=== PATIENT | male | born 1950 | race Caucasian/White ===

== ENCOUNTER → 2017-03-11 | Outpatient (REF) | payer MEDICARE, OTHER ==
[~2017-03-11] MED LIST: ACET65TA OR; ASPI325T OR; CIPRO OR; ENAL10TA2 OR; ENAL5TAB OR; FLAG500T OR; NIAS500T2 OR; NORV5TAB OR; TRAM50TA2 OR; [UNRECOGNIZED DRUG - OTHER] PO
[2017-03-11 12:16] LABS: BASO % 0.4 % (0.0-1.0); EOS # 0.1 K/mm3 (0.0-0.50); EOS % 1.6 % (0.0-3.0); LYMPH # 1.2 K/mm3 (1.5-4.5); LYMPH % 15.5 % (24.0-44.0); MEAN CORPUSCULAR HGB CONC 33.3 g/dl (32.0-36.5); MEAN CORPUSCULAR VOLUME 99.1 fl (80.0-96.0); MONO # 0.4 K/mm3 (0.0-0.8); NEUTROPHILS # 5.7 K/mm3 (1.8-7.7); NEUTROPHILS % 75.3 % (36.0-66.0); RED CELL DISTRIBUTION WIDTH 13.6 % (11.5-14.5); WHITE BLOOD COUNT 7.6 K/mm3 (4.0-10.0)
[2017-03-11 12:21] LABS: ALBUMIN 3.7 GM/DL (3.2-5.2); ALBUMIN/GLOBULIN RATIO 1.19 (1.00-1.93); BILIRUBIN,TOTAL 0.5 MG/DL (0.2-1.0); CALCIUM LEVEL 8.8 MG/DL (8.8-10.2); CREATININE FOR GFR 1.68 MG/DL (0.70-1.30); FREE T4 1.14 NG/DL (0.76-1.46); GLOMERULAR FILTRATION RATE 43.5 (>49); POTASSIUM SERUM 4.3 MEQ/L (3.5-5.1); TOTAL PROTEIN 6.8 GM/DL (6.4-8.2)
== END ==
LOC: M LABDRAW1 11:31
PROVIDERS: ATTEND Nurse Practitioner Adult Health
DX: E78.1 Pure hyperglyceridemia (principal); Z79.899 Other long term (current) drug therapy; E55.9 Vitamin D deficiency, unspecified; I42.0 Dilated cardiomyopathy; E11.59 Type 2 diabetes mellitus with other circulatory complications

== ENCOUNTER → 2017-06-26 | Outpatient (CLI) | payer MEDICARE, OTHER ==
[2017-06-26 10:11] LABS: BASO # 0.1 10^3/uL (0.0-0.2); BASO % 0.8 % (0.0-1.0); EOS # 0.2 10^3/uL (0.0-0.50); EOS % 2.7 % (0.0-3.0); IMMATURE GRANULOCYTE % 0.6 % (0-0); LYMPH # 1.8 10^3/uL (1.5-4.5); LYMPH % 19.3 % (24.0-44.0); MEAN CORPUSCULAR HEMOGLOBIN 32.2 pg (27.0-33.0); MEAN CORPUSCULAR HGB CONC 32.7 g/dl (32.0-36.5); MEAN CORPUSCULAR VOLUME 98.6 fl (80.0-96.0); MONO # 0.9 10^3/uL (0.0-0.8); MONO % 10.2 % (0.0-5.0); NEUTROPHILS % 66.4 % (36.0-66.0); PLATELET COUNT, AUTOMATED 146 10^3/uL (150-450); RED CELL DISTRIBUTION WIDTH 13.3 % (11.5-14.5); WHITE BLOOD COUNT 9.1 10^3/uL (4.0-10.0)
[2017-06-26 10:26] LABS: ALBUMIN 3.6 GM/DL (3.2-5.2); ALBUMIN/GLOBULIN RATIO 1.13 (1.00-1.93); BILIRUBIN,TOTAL 0.6 MG/DL (0.2-1.0); CREATININE FOR GFR 1.64 MG/DL (0.70-1.30); FREE T4 1.1 NG/DL (0.76-1.46); GLOMERULAR FILTRATION RATE 44.6 (>49); TOTAL PROTEIN 6.8 GM/DL (6.4-8.2)
== END ==
LOC: M LABDRAW1 08:04
PROVIDERS: ATTEND Nurse Practitioner Adult Health
DX: M10.071 Idiopathic gout, right ankle and foot (principal); E78.1 Pure hyperglyceridemia; E11.59 Type 2 diabetes mellitus with other circulatory complications; Z79.899 Other long term (current) drug therapy; E55.9 Vitamin D deficiency, unspecified

== ENCOUNTER → 2017-09-24 | Outpatient (REF) | payer MEDICARE, OTHER ==
[2017-09-24 12:36] LABS: CREATININE FOR GFR 1.51 MG/DL (0.70-1.30)
[2017-09-24 12:36] LABS: BLOOD UREA NITROGEN 28 MG/DL (7-18)
== END ==
LOC: M LABDRAW1 11:38
DX: I10 Essential (primary) hypertension (principal)
CPT/HCPCS: 82565

== ENCOUNTER → 2017-10-07 | Outpatient (REF) | payer MEDICARE, OTHER ==
[2017-10-07 11:56] LABS: BASO # 0.1 10^3/uL (0.0-0.2); BASO % 0.5 % (0.0-1.0); EOS # 0.3 10^3/uL (0.0-0.50); EOS % 2.7 % (0.0-3.0); IMMATURE GRANULOCYTE % 0.4 % (0-3.0); LYMPH # 1.8 10^3/uL (1.5-4.5); LYMPH % 19.5 % (24.0-44.0); MEAN CORPUSCULAR HEMOGLOBIN 32.1 pg (27.0-33.0); MEAN CORPUSCULAR HGB CONC 32.6 g/dl (32.0-36.5); MEAN CORPUSCULAR VOLUME 98.6 fl (80.0-96.0); MONO % 10.3 % (0.0-5.0); NEUTROPHILS # 6.3 10^3/uL (1.8-7.7); NEUTROPHILS % 66.6 % (36.0-66.0); PLATELET COUNT, AUTOMATED 145 10^3/uL (150-450); RED BLOOD COUNT 4.36 10^6/uL (4.30-6.10); WHITE BLOOD COUNT 9.4 10^3/uL (4.0-10.0)
[2017-10-07 12:30] LABS: TOTAL 25(OH) VITAMIN D 45.3 NG/ML (30.0-100.0)
[2017-10-07 12:35] LABS: ALBUMIN 3.6 GM/DL (3.2-5.2); ALBUMIN/GLOBULIN RATIO 1.13 (1.00-1.93); ALKALINE PHOSPHATASE 56 U/L (45-117); ALT/SGPT 25 U/L (12-78); ANION GAP 8 MEQ/L (8-16); AST/SGOT 17 U/L (7-37); BILIRUBIN,TOTAL 0.4 MG/DL (0.2-1.0); BLOOD UREA NITROGEN 27 MG/DL (7-18); CALCIUM LEVEL 9.1 MG/DL (8.8-10.2); CARBON DIOXIDE LEVEL 27 MEQ/L (21-32); CHLORIDE LEVEL 107 MEQ/L (98-107); CHOLESTEROL LEVEL 150 MG/DL (<200); CHOLESTEROL RISK RATIO 3.333 (<5); CREATININE FOR GFR 1.43 MG/DL (0.70-1.30); FREE T4 1.05 NG/DL (0.76-1.46); GLOMERULAR FILTRATION RATE 52.2 (>49); GLUCOSE, FASTING 146 MG/DL (70-100); HDL CHOLESTEROL 45 MG/DL (>40); LDL CHOLESTEROL 72.4 MG/DL (<100); NON-HDL-C 105 MG/DL; POTASSIUM SERUM 4.2 MEQ/L (3.5-5.1); SODIUM LEVEL 142 MEQ/L (136-145); THYROID STIMULATING HORMONE 0.864 uIU/ML (0.358-3.740); TOTAL PROTEIN 6.8 GM/DL (6.4-8.2); TRIGLYCERIDES LEVEL 163 MG/DL (<150)
[2017-10-07 12:37] LABS: ESTIMATED AVERAGE GLUCOSE 189 MG/DL (60-110); HEMOGLOBIN A1c 8.2 %
== END ==
LOC: M LABDRAW1 10:21
DX: E78.1 Pure hyperglyceridemia (principal); I42.0 Dilated cardiomyopathy; E11.59 Type 2 diabetes mellitus with other circulatory complications; I10 Essential (primary) hypertension; Z79.899 Other long term (current) drug therapy; E55.9 Vitamin D deficiency, unspecified; E78.00 Pure hypercholesterolemia, unspecified
CPT/HCPCS: 84443

== ENCOUNTER → 2018-01-06 | Outpatient (REF) | payer MEDICARE, OTHER ==
[2018-01-06 14:28] LABS: BASO # 0.1 10^3/uL (0.0-0.2); BASO % 0.6 % (0.0-1.0); EOS # 0.2 10^3/uL (0.0-0.50); EOS % 2.5 % (0.0-3.0); HEMATOCRIT 52.1 % (42.0-52.0); IMMATURE GRANULOCYTE % 0.5 % (0-3.0); LYMPH # 1.7 10^3/uL (1.5-4.5); LYMPH % 19.9 % (24.0-44.0); MEAN CORPUSCULAR HEMOGLOBIN 32.1 pg (27.0-33.0); MEAN CORPUSCULAR HGB CONC 32.6 g/dl (32.0-36.5); MEAN CORPUSCULAR VOLUME 98.5 fl (80.0-96.0); MONO # 0.9 10^3/uL (0.0-0.8); MONO % 10.6 % (0.0-5.0); NEUTROPHILS # 5.7 10^3/uL (1.8-7.7); NEUTROPHILS % 65.9 % (36.0-66.0); PLATELET COUNT, AUTOMATED 135 10^3/uL (150-450); RED BLOOD COUNT 5.29 10^6/uL (4.30-6.10); RED CELL DISTRIBUTION WIDTH 14.5 % (11.5-14.5); WHITE BLOOD COUNT 8.7 10^3/uL (4.0-10.0)
[2018-01-06 14:58] LABS: ESTIMATED AVERAGE GLUCOSE 192 MG/DL (60-110); HEMOGLOBIN A1c 8.3 %
[2018-01-06 14:59] LABS: TOTAL 25(OH) VITAMIN D 27.2 NG/ML (30.0-100.0)
[2018-01-06 15:12] LABS: ALBUMIN 3.8 GM/DL (3.2-5.2); ALBUMIN/GLOBULIN RATIO 1.23 (1.00-1.93); ALKALINE PHOSPHATASE 50 U/L (45-117); ALT/SGPT 33 U/L (12-78); ANION GAP 9 MEQ/L (8-16); AST/SGOT 24 U/L (7-37); BILIRUBIN,TOTAL 0.6 MG/DL (0.2-1.0); BLOOD UREA NITROGEN 28 MG/DL (7-18); CALCIUM LEVEL 9.1 MG/DL (8.8-10.2); CARBON DIOXIDE LEVEL 25 MEQ/L (21-32); CHLORIDE LEVEL 108 MEQ/L (98-107); CHOLESTEROL LEVEL 174 MG/DL (<200); CHOLESTEROL RISK RATIO 4.833 (<5); FREE T4 1.16 NG/DL (0.76-1.46); GLOMERULAR FILTRATION RATE 45.9 (>49); GLUCOSE, FASTING 180 MG/DL (70-100); HDL CHOLESTEROL 36 MG/DL (>40); LDL CHOLESTEROL 99.6 MG/DL (<100); NON-HDL-C 138 MG/DL; POTASSIUM SERUM 4.3 MEQ/L (3.5-5.1); SODIUM LEVEL 142 MEQ/L (136-145); TOTAL PROTEIN 6.9 GM/DL (6.4-8.2); TRIGLYCERIDES LEVEL 192 MG/DL (<150)
== END ==
LOC: M LABDRAW1 14:07
DX: E78.1 Pure hyperglyceridemia (principal); I42.0 Dilated cardiomyopathy; E11.59 Type 2 diabetes mellitus with other circulatory complications; I10 Essential (primary) hypertension; Z79.899 Other long term (current) drug therapy; E55.9 Vitamin D deficiency, unspecified; E78.00 Pure hypercholesterolemia, unspecified
CPT/HCPCS: 84443

== ENCOUNTER → 2018-03-19 | Outpatient (REF) | payer MEDICARE, OTHER ==
[2018-03-19 12:04] LABS: BASO # 0.1 10^3/uL (0.0-0.2); BASO % 0.9 % (0.0-1.0); EOS # 0.2 10^3/uL (0.0-0.50); EOS % 2.4 % (0.0-3.0); HEMATOCRIT 51.5 % (42.0-52.0); HEMOGLOBIN 16.6 g/dl (13.5-17.5); IMMATURE GRANULOCYTE % 0.4 % (0-3.0); LYMPH # 1.3 10^3/uL (1.5-4.5); LYMPH % 17.1 % (24.0-44.0); MEAN CORPUSCULAR HEMOGLOBIN 32.7 pg (27.0-33.0); MEAN CORPUSCULAR HGB CONC 32.2 g/dl (32.0-36.5); MEAN CORPUSCULAR VOLUME 101.6 fl (80.0-96.0); MONO # 0.7 10^3/uL (0.0-0.8); MONO % 9.4 % (0.0-5.0); NEUTROPHILS # 5.5 10^3/uL (1.8-7.7); NEUTROPHILS % 69.8 % (36.0-66.0); PLATELET COUNT, AUTOMATED 139 10^3/uL (150-450); RED BLOOD COUNT 5.07 10^6/uL (4.30-6.10); RED CELL DISTRIBUTION WIDTH 14.9 % (11.5-14.5); WHITE BLOOD COUNT 7.8 10^3/uL (4.0-10.0)
[2018-03-19 12:11] LABS: POSITIVE MORPH POS FLAG
[2018-03-19 12:18] LABS: TOTAL 25(OH) VITAMIN D 34.8 NG/ML (30.0-100.0)
[2018-03-19 12:41] LABS: ALBUMIN 3.7 GM/DL (3.2-5.2); ALBUMIN/GLOBULIN RATIO 1.12 (1.00-1.93); ALKALINE PHOSPHATASE 54 U/L (45-117); ALT/SGPT 25 U/L (12-78); ANION GAP 7 MEQ/L (8-16); AST/SGOT 9 U/L (7-37); BILIRUBIN,TOTAL 0.7 MG/DL (0.2-1.0); BLOOD UREA NITROGEN 26 MG/DL (7-18); CARBON DIOXIDE LEVEL 27 MEQ/L (21-32); CHLORIDE LEVEL 108 MEQ/L (98-107); CHOLESTEROL LEVEL 145 MG/DL (<200); CHOLESTEROL RISK RATIO 3.152 (<5); FREE T4 1.13 NG/DL (0.76-1.46); GLOMERULAR FILTRATION RATE 42.8 (>49); GLUCOSE, FASTING 186 MG/DL (70-100); HDL CHOLESTEROL 46 MG/DL (>40); LDL CHOLESTEROL 69.4 MG/DL (<100); NON-HDL-C 99 MG/DL; POTASSIUM SERUM 4.7 MEQ/L (3.5-5.1); SODIUM LEVEL 142 MEQ/L (136-145); THYROID STIMULATING HORMONE 0.866 uIU/ML (0.358-3.740); TRIGLYCERIDES LEVEL 148 MG/DL (<150); URIC ACID 5.9 MG/DL (3.5-7.2)
[2018-03-19 13:30] LABS: MAU/CREAT RATIO 293.2 MCG/MG (0.0-30.0)
[2018-03-19 13:49] LABS: ESTIMATED AVERAGE GLUCOSE 183 MG/DL (60-110)
== END ==
LOC: M LABDRAW1 09:05
DX: E11.9 Type 2 diabetes mellitus without complications (principal); E55.9 Vitamin D deficiency, unspecified; Z79.899 Other long term (current) drug therapy; E78.1 Pure hyperglyceridemia; M10.071 Idiopathic gout, right ankle and foot
CPT/HCPCS: 84443

== ENCOUNTER → 2018-04-15 | Outpatient (CLI) | payer MEDICARE, OTHER | LOC: M LRY 11:03 | DX: M77.31 Calcaneal spur, right foot (principal); M10.9 Gout, unspecified | CPT/HCPCS: G0463 ==

== ENCOUNTER → 2018-07-22 | Outpatient (REF) | payer MEDICARE, OTHER ==
[2018-07-22 12:40] LABS: BASO # 0.1 10^3/uL (0.0-0.2); BASO % 0.6 % (0.0-1.0); EOS # 0.3 10^3/uL (0.0-0.50); EOS % 2.4 % (0.0-3.0); HEMATOCRIT 51.6 % (42.0-52.0); HEMOGLOBIN 16.9 g/dl (13.5-17.5); LYMPH # 1.8 10^3/uL (1.5-4.5); LYMPH % 17.2 % (24.0-44.0); MEAN CORPUSCULAR HEMOGLOBIN 32.7 pg (27.0-33.0); MEAN CORPUSCULAR HGB CONC 32.8 g/dl (32.0-36.5); MEAN CORPUSCULAR VOLUME 99.8 fl (80.0-96.0); MONO # 1.1 10^3/uL (0.0-0.8); MONO % 10.2 % (0.0-5.0); NEUTROPHILS # 7.3 10^3/uL (1.8-7.7); PLATELET COUNT, AUTOMATED 138 10^3/uL (150-450); RED BLOOD COUNT 5.17 10^6/uL (4.30-6.10); WHITE BLOOD COUNT 10.6 10^3/uL (4.0-10.0)
[2018-07-22 12:53] LABS: ALBUMIN 3.5 GM/DL (3.2-5.2); BILIRUBIN,TOTAL 0.6 MG/DL (0.2-1.0); CALCIUM LEVEL 8.8 MG/DL (8.8-10.2); CHOLESTEROL RISK RATIO 3.825 (<5); CREATININE FOR GFR 1.68 MG/DL (0.70-1.30); GLOMERULAR FILTRATION RATE 43.2 (>42); THYROID STIMULATING HORMONE 0.438 uIU/ML (0.358-3.740); TOTAL PROTEIN 6.8 GM/DL (6.4-8.2)
[2018-07-22 13:22] LABS: HEMOGLOBIN A1c 8.8 %
== END ==
LOC: M LABDRAW1 11:34
PROVIDERS: ATTEND Nurse Practitioner Adult Health
DX: E78.2 Mixed hyperlipidemia (principal); E11.65 Type 2 diabetes mellitus with hyperglycemia; Z79.899 Other long term (current) drug therapy

== ENCOUNTER → 2018-08-25 | Outpatient (REF) | payer MEDICARE, OTHER ==
[2018-08-25 12:19] LABS: BASO # 0.1 10^3/uL (0.0-0.2); BASO % 0.6 % (0.0-1.0); EOS # 0.2 10^3/uL (0.0-0.50); EOS % 1.8 % (0.0-3.0); HEMATOCRIT 51.8 % (42.0-52.0); HEMOGLOBIN 16.8 g/dl (13.5-17.5); LYMPH # 1.5 10^3/uL (1.5-4.5); LYMPH % 18.3 % (24.0-44.0); MEAN CORPUSCULAR HEMOGLOBIN 32.4 pg (27.0-33.0); MEAN CORPUSCULAR HGB CONC 32.4 g/dl (32.0-36.5); MONO # 0.9 10^3/uL (0.0-0.8); MONO % 10.7 % (0.0-5.0); NEUTROPHILS # 5.7 10^3/uL (1.8-7.7); NEUTROPHILS % 68.2 % (36.0-66.0); PLATELET COUNT, AUTOMATED 135 10^3/uL (150-450); RED BLOOD COUNT 5.18 10^6/uL (4.30-6.10); WHITE BLOOD COUNT 8.3 10^3/uL (4.0-10.0)
[2018-08-25 12:28] LABS: ALBUMIN 3.5 GM/DL (3.2-5.2); BILIRUBIN,TOTAL 0.6 MG/DL (0.2-1.0); CALCIUM LEVEL 8.7 MG/DL (8.8-10.2); CHOLESTEROL RISK RATIO 3.476 (<5); CREATININE FOR GFR 1.59 MG/DL (0.70-1.30); GLOMERULAR FILTRATION RATE 46.1 (>42); POTASSIUM SERUM 4.2 MEQ/L (3.5-5.1); THYROID STIMULATING HORMONE 0.62 uIU/ML (0.358-3.740); TOTAL 25(OH) VITAMIN D 24.7 NG/ML (30.0-100.0); TOTAL PROTEIN 6.7 GM/DL (6.4-8.2)
[2018-08-25 12:39] LABS: HEMOGLOBIN A1c 9.2 %
== END ==
LOC: M LABDRAW1 11:41
PROVIDERS: ATTEND Nurse Practitioner Adult Health
DX: E78.2 Mixed hyperlipidemia (principal); E55.9 Vitamin D deficiency, unspecified; E11.65 Type 2 diabetes mellitus with hyperglycemia; Z79.899 Other long term (current) drug therapy

== ENCOUNTER → 2018-12-19 | Outpatient (REF) | payer MEDICARE, OTHER ==
[2018-12-19 12:47] LABS: BASO # 0.1 10^3/uL (0.0-0.2); BASO % 0.6 % (0.0-1.0); EOS # 0.2 10^3/uL (0.0-0.50); EOS % 1.5 % (0.0-3.0); LYMPH % 20.2 % (24.0-44.0); MEAN CORPUSCULAR HEMOGLOBIN 32.6 pg (27.0-33.0); MEAN CORPUSCULAR HGB CONC 32.7 g/dl (32.0-36.5); MEAN CORPUSCULAR VOLUME 99.8 fl (80.0-96.0); MONO % 10.2 % (0.0-5.0); NEUTROPHILS # 6.5 10^3/uL (1.8-7.7); PLATELET COUNT, AUTOMATED 130 10^3/uL (150-450); RED BLOOD COUNT 5.21 10^6/uL (4.30-6.10); WHITE BLOOD COUNT 9.8 10^3/uL (4.0-10.0)
[2018-12-19 13:15] LABS: ALBUMIN 3.6 GM/DL (3.2-5.2); BILIRUBIN,TOTAL 0.9 MG/DL (0.2-1.0); CALCIUM LEVEL 8.9 MG/DL (8.8-10.2); CHOLESTEROL RISK RATIO 3.8 (<5); CREATININE FOR GFR 1.67 MG/DL (0.70-1.30); GLOMERULAR FILTRATION RATE 43.5 (>42); POTASSIUM SERUM 4.4 MEQ/L (3.5-5.1); THYROID STIMULATING HORMONE 1.49 uIU/ML (0.358-3.740); TOTAL 25(OH) VITAMIN D 19.7 NG/ML (30.0-100.0); TOTAL PROTEIN 7.1 GM/DL (6.4-8.2)
== END ==
LOC: M LABDRAW1 11:58
PROVIDERS: ATTEND Nurse Practitioner Adult Health
DX: E78.2 Mixed hyperlipidemia (principal); E11.65 Type 2 diabetes mellitus with hyperglycemia; E55.9 Vitamin D deficiency, unspecified; Z79.899 Other long term (current) drug therapy

== ENCOUNTER → 2019-03-09 | Outpatient (REF) | payer MEDICARE, OTHER ==
[2019-03-09 13:23] LABS: BASO # 0.1 10^3/uL (0.0-0.2); BASO % 0.6 % (0.0-1.0); EOS # 0.2 10^3/uL (0.0-0.50); EOS % 2.1 % (0.0-3.0); HEMATOCRIT 48.2 % (42.0-52.0); HEMOGLOBIN 15.2 g/dl (13.5-17.5); LYMPH # 1.3 10^3/uL (1.5-4.5); LYMPH % 15.3 % (24.0-44.0); MEAN CORPUSCULAR HEMOGLOBIN 32.3 pg (27.0-33.0); MEAN CORPUSCULAR HGB CONC 31.5 g/dl (32.0-36.5); MEAN CORPUSCULAR VOLUME 102.3 fl (80.0-96.0); MONO # 0.9 10^3/uL (0.0-0.8); MONO % 10.4 % (0.0-5.0); NEUTROPHILS # 5.8 10^3/uL (1.8-7.7); NEUTROPHILS % 71.1 % (36.0-66.0); PLATELET COUNT, AUTOMATED 148 10^3/uL (150-450); RED BLOOD COUNT 4.71 10^6/uL (4.30-6.10); WHITE BLOOD COUNT 8.2 10^3/uL (4.0-10.0)
[2019-03-09 13:36] LABS: ALBUMIN 3.3 GM/DL (3.2-5.2); BILIRUBIN,TOTAL 0.4 MG/DL (0.2-1.0); CHOLESTEROL RISK RATIO 3.725 (<5); CREATININE FOR GFR 1.74 MG/DL (0.70-1.30); GLOMERULAR FILTRATION RATE 41.5 (>42); POTASSIUM SERUM 4.5 MEQ/L (3.5-5.1); THYROID STIMULATING HORMONE 1.59 uIU/ML (0.358-3.740); TOTAL 25(OH) VITAMIN D 22.8 NG/ML (30.0-100.0); TOTAL PROTEIN 6.8 GM/DL (6.4-8.2); URIC ACID 6.2 MG/DL (3.5-7.2)
[2019-03-09 14:04] LABS: HEMOGLOBIN A1c 12.9 %
== END ==
LOC: M LABDRAW1 12:13
PROVIDERS: ATTEND Nurse Practitioner Adult Health
DX: E78.2 Mixed hyperlipidemia (principal); E11.65 Type 2 diabetes mellitus with hyperglycemia; Z79.899 Other long term (current) drug therapy; M10.40 Other secondary gout, unspecified site; Z00.01 Encounter for general adult medical examination with abnormal findings; I10 Essential (primary) hypertension; E55.9 Vitamin D deficiency, unspecified

== ENCOUNTER → 2019-06-15 | Outpatient (REF) | payer MEDICARE, OTHER ==
[2019-06-15 12:15] LABS: BASO # 0.1 10^3/uL (0.0-0.2); BASO % 0.7 % (0.0-1.0); EOS # 0.2 10^3/uL (0.0-0.5); EOS % 1.5 % (0.0-3.0); HEMATOCRIT 50.4 % (42.0-52.0); LYMPH # 1.4 10^3/uL (1.5-5.0); LYMPH % 14.2 % (24.0-44.0); MEAN CORPUSCULAR HEMOGLOBIN 32.3 pg (27.0-33.0); MEAN CORPUSCULAR HGB CONC 31.7 g/dl (32.0-36.5); MEAN CORPUSCULAR VOLUME 101.8 fl (80.0-96.0); MONO # 0.8 10^3/uL (0.0-0.8); MONO % 7.9 % (0.0-5.0); NEUTROPHILS # 7.4 10^3/uL (1.5-8.5); NEUTROPHILS % 75.3 % (36.0-66.0); PLATELET COUNT, AUTOMATED 135 10^3/uL (150-450); RED BLOOD COUNT 4.95 10^6/uL (4.30-6.10); WHITE BLOOD COUNT 9.8 10^3/uL (4.0-10.0)
[2019-06-15 12:26] LABS: ALBUMIN 3.5 GM/DL (3.2-5.2); BILIRUBIN,TOTAL 0.7 MG/DL (0.2-1.0); CALCIUM LEVEL 9.4 MG/DL (8.8-10.2); CHOLESTEROL RISK RATIO 3.222 (<5); CREATININE FOR GFR 1.51 MG/DL (0.70-1.30); GLOMERULAR FILTRATION RATE 48.7 (>42); POTASSIUM SERUM 4.5 MEQ/L (3.5-5.1); THYROID STIMULATING HORMONE 1.08 uIU/ML (0.358-3.740); TOTAL 25(OH) VITAMIN D 59.4 NG/ML (30.0-100.0); TOTAL PROTEIN 6.7 GM/DL (6.4-8.2); URIC ACID 4.9 MG/DL (3.5-7.2)
== END ==
LOC: M LABDRAW1 08:58
PROVIDERS: ATTEND Nurse Practitioner Adult Health
DX: Z00.01 Encounter for general adult medical examination with abnormal findings (principal); E78.2 Mixed hyperlipidemia; E11.65 Type 2 diabetes mellitus with hyperglycemia; Z79.899 Other long term (current) drug therapy; E55.9 Vitamin D deficiency, unspecified; I10 Essential (primary) hypertension; M10.40 Other secondary gout, unspecified site

== ENCOUNTER 2019-09-03 12:55 | Emergency (ER) | payer MEDICARE, OTHER ==
[~2019-09-03] VITALS: Ht 172.7 cm; Wt 88.2 kg
[2019-09-03] MEDS ORDERED: ATOR1TAB21 (13:14)
[2019-09-03] MEDS ORDERED: FURO40TA2 (13:14)
[2019-09-03] MEDS ORDERED: CARV25TA (13:14)
[2019-09-03] MEDS ORDERED: ZYLO300T6 (13:14)
[2019-09-03] MEDS ORDERED: FARX1TAB3 (13:14)
[2019-09-03] MEDS ORDERED: JANU100T (13:14)
[2019-09-03] MEDS ORDERED: VITA1CAP25 (13:15)
[2019-09-03] MEDS ORDERED: ASPI81TA85 PO (13:15)
[2019-09-03] MEDS ORDERED: ENTR1TAB7 (13:15)
[2019-09-03 13:28] VITALS: BP 184/74
== END 2019-09-03 14:17 | disposition home or self-care (01) ==
LOC: M ED 12:55
DX: I49.3 Ventricular premature depolarization (principal); R11.10 Vomiting, unspecified; R19.7 Diarrhea, unspecified; I10 Essential (primary) hypertension; Z85.46 Personal history of malignant neoplasm of prostate; Z88.8 Allergy status to other drugs, medicaments and biological substances; Z79.899 Other long term (current) drug therapy; Z79.84 Long term (current) use of oral hypoglycemic drugs; Z79.82 Long term (current) use of aspirin
CPT/HCPCS: 36415; 80047; 81002; 93005; 93041; 94760; 99284; G0463

== ENCOUNTER → 2019-09-21 | Outpatient (REF) | payer MEDICARE, OTHER ==
[~2019-09-21] MED LIST changes: +ASPI81TA85 PO; +ATOR1TAB21; +CARV25TA; +ENTR1TAB7; +FARX1TAB3; +FURO40TA2; +JANU100T; +VITA1CAP25; +ZYLO300T6
[2019-09-21 13:10] LABS: BASO # 0.1 10^3/uL (0.0-0.2); BASO % 0.5 % (0.0-1.0); EOS # 0.1 10^3/uL (0.0-0.5); EOS % 1.1 % (0.0-3.0); HEMATOCRIT 50.2 % (42.0-52.0); LYMPH # 1.6 10^3/uL (1.5-5.0); LYMPH % 15.8 % (24.0-44.0); MEAN CORPUSCULAR HEMOGLOBIN 31.7 pg (27.0-33.0); MEAN CORPUSCULAR HGB CONC 31.9 g/dl (32.0-36.5); MEAN CORPUSCULAR VOLUME 99.6 fl (80.0-96.0); MONO # 0.8 10^3/uL (0.0-0.8); MONO % 7.8 % (0.0-5.0); NEUTROPHILS # 7.3 10^3/uL (1.5-8.5); NEUTROPHILS % 74.3 % (36.0-66.0); PLATELET COUNT, AUTOMATED 158 10^3/uL (150-450); RED BLOOD COUNT 5.04 10^6/uL (4.30-6.10); WHITE BLOOD COUNT 9.8 10^3/uL (4.0-10.0)
[2019-09-21 13:26] LABS: ALBUMIN 3.4 GM/DL (3.2-5.2); ALT/SGPT 24 U/L (12-78); BILIRUBIN,TOTAL 0.7 MG/DL (0.2-1.0); BLOOD UREA NITROGEN 23 MG/DL (7-18); CALCIUM LEVEL 9.2 MG/DL (8.8-10.2); CARBON DIOXIDE LEVEL 28 MEQ/L (21-32); CHLORIDE LEVEL 109 MEQ/L (98-107); CHOLESTEROL LEVEL 127 MG/DL (<200); CHOLESTEROL RISK RATIO 2.822 (<5); CREATININE FOR GFR 1.26 MG/DL (0.70-1.30); GLOMERULAR FILTRATION RATE > 60.0 (>42); GLUCOSE, FASTING 170 MG/DL (70-100); HDL CHOLESTEROL 45 MG/DL (>40); LDL CHOLESTEROL 63 MG/DL (<100); NON-HDL-C 82 MG/DL; POTASSIUM SERUM 4.3 MEQ/L (3.5-5.1); SODIUM LEVEL 143 MEQ/L (136-145); TOTAL 25(OH) VITAMIN D 63.2 NG/ML (30.0-100.0); TOTAL PROTEIN 6.6 GM/DL (6.4-8.2); TRIGLYCERIDES LEVEL 97 MG/DL (<150); URIC ACID 4.6 MG/DL (3.5-7.2)
[2019-09-21 13:31] LABS: HEMOGLOBIN A1c 8.4 %
== END ==
LOC: M LABDRAW1 12:13
PROVIDERS: ATTEND Nurse Practitioner Adult Health
DX: E11.65 Type 2 diabetes mellitus with hyperglycemia (principal); M10.9 Gout, unspecified; E78.2 Mixed hyperlipidemia

== ENCOUNTER → 2019-12-25 | Outpatient (CLI) | payer MEDICARE, OTHER ==
--- NOTE | 2019-12-25 10:42 | REP ---
CHEST, TWO VIEWS: Two views of the chest are performed. 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 This appears similar to the prior study. There is no definite acute infiltrate or focal parenchymal opacity. There is mild cardiomegaly. There is calcification of the thoracic aorta. The mediastinal silhouette is unchanged. Multiple sternal wires and mediastinal clips are present. There are mild degenerative changes of the spine . IMPRESSION: Mild cardiomegaly and chronic fibrotic change. No definite acute pulmonary disease. If symptoms persist, recommend CT of the chest. Electronically Signed by Baldev Cortes MD 12/25/2019 11:09 A
== END ==
LOC: M LRY 09:43
PROVIDERS: ATTEND Physician Assistant Medical
DX: J20.9 Acute bronchitis, unspecified (principal); I51.7 Cardiomegaly; J84.10 Pulmonary fibrosis, unspecified; I70.0 Atherosclerosis of aorta

== ENCOUNTER → 2021-03-20 | Outpatient (CLI) | payer MEDICARE, OTHER ==
[~2021-03-20] MED LIST changes: -ASPI81TA85 PO; +ASPI81TA86 PO
--- NOTE | 2021-03-20 13:58 | REP ---
INDICATION: V. Chronic kidney disease, stage III. Atherosclerosis of renal artery. COMPARISON: None. TECHNIQUE: Urinary tract sonography. Renal artery Doppler flow examination. FINDINGS: Scanning at the level of the urinary bladder shows no abnormality. Renal cortical echogenicity pattern is normal bilaterally and contours are smooth. There are multiple bilateral renal cortical cysts. These include 3 cysts in the left kidney measuring 1.6, 1.6, and 2.4 cm in greatest diameter respectively. There are 3 cysts identified in the right kidney, the largest of which measures 2.2 cm in diameter. No renal mass lesion is observed. No hydronephrosis is seen.. The right kidney measures 11.5 x 5.9 x 6.7 cm. Left renal dimensions are 13.2 x 6.1 x 6.5 cm. Renal artery Doppler: Peak systolic flow velocity in the abdominal aorta at the level of main renal arteries is normal at 69 centimeters/second. Peak systolic flow velocity in the proximal most renal arteries could not be seen due to bowel gas. At the level of the left renal hilus, renal artery flow velocity is 98 centimeters/second. Right mid renal artery peak systolic flow velocity is 146 centimeters/second. These values are normal. Renal to aortic flow velocity ratios are normal at 2.1 on the right and 1.4 on the left. Resistive indices and acceleration times are measured in the intralobar arteries of the upper, mid, and lower pole bilaterally. These values are normal. IMPRESSION: Bilateral renal cortical cysts. No hydronephrosis seen. No Doppler evidence to suggest renal artery stenosis.. Visualization of the proximal most renal arteries is limited by bowel gas. <Electronically signed by Leon Plasencia > 03/20/21 [id number]
== END ==
LOC: M RAD 09:23
PROVIDERS: ATTEND Internal Medicine Nephrology
DX: N18.32 Chronic kidney disease, stage 3b (principal); I70.1 Atherosclerosis of renal artery

== ENCOUNTER → 2021-04-18 | Outpatient (CLI) | payer MEDICARE, OTHER ==
[2021-04-18 10:43] LABS: BASO # 0.1 10^3/uL (0.0-0.2); BASO % 0.6 % (0.0-1.0); EOS # 0.2 10^3/uL (0.0-0.5); EOS % 1.6 % (0.0-3.0); HEMATOCRIT 44.9 % (42.0-52.0); HEMOGLOBIN 14.6 g/dl (13.5-17.5); LYMPH # 1.6 10^3/uL (1.5-5.0); LYMPH % 15.6 % (24.0-44.0); MEAN CORPUSCULAR HEMOGLOBIN 33.5 pg (27.0-33.0); MEAN CORPUSCULAR HGB CONC 32.5 g/dl (32.0-36.5); MONO % 9.7 % (2.0-8.0); NEUTROPHILS # 7.4 10^3/uL (1.5-8.5); PLATELET COUNT, AUTOMATED 140 10^3/uL (150-450); RED BLOOD COUNT 4.36 10^6/uL (4.30-6.10); WHITE BLOOD COUNT 10.3 10^3/uL (4.0-10.0)
[2021-04-18 13:15] LABS: ALBUMIN 3.4 GM/DL (3.2-5.2); ALT/SGPT 28 U/L (12-78); BILIRUBIN,TOTAL 0.7 MG/DL (0.2-1.0); BLOOD UREA NITROGEN 32 MG/DL (7-18); CALCIUM LEVEL 9.2 MG/DL (8.8-10.2); CARBON DIOXIDE LEVEL 28 MEQ/L (21-32); CHLORIDE LEVEL 110 MEQ/L (98-107); CHOLESTEROL LEVEL 142 MG/DL (<200); CHOLESTEROL RISK RATIO 3.227 (<5); CREATININE FOR GFR 1.67 MG/DL (0.70-1.30); GLOMERULAR FILTRATION RATE 43.3 (>42); GLUCOSE, FASTING 132 MG/DL (70-100); HDL CHOLESTEROL 44 MG/DL (>40); LDL CHOLESTEROL 63 MG/DL (<100); NON-HDL-C 98 MG/DL; POTASSIUM SERUM 4.6 MEQ/L (3.5-5.1); SODIUM LEVEL 143 MEQ/L (136-145); TOTAL PROTEIN 6.7 GM/DL (6.4-8.2); TRIGLYCERIDES LEVEL 176 MG/DL (<150); URIC ACID 5.3 MG/DL (3.5-7.2)
[2021-04-18 13:24] LABS: HEMOGLOBIN A1c 7.9 %
[2021-04-20 08:09] LABS: PSA TOTAL <0.1 ng/mL (0.0-4.0)
== END ==
LOC: M PLALAB 09:18
PROVIDERS: ATTEND Nurse Practitioner Family
DX: E78.2 Mixed hyperlipidemia (principal)
CPT/HCPCS: 36415; 80053; 80061; 83036; 84154; 84443; 84550; 85025; G0103

== ENCOUNTER → 2021-06-20 | Outpatient (CLI) | payer MEDICARE, OTHER ==
[2021-06-20 16:03] LABS: CALCIUM LEVEL 9.7 MG/DL (8.8-10.2); CREATININE FOR GFR 1.69 MG/DL (0.70-1.30); GLOMERULAR FILTRATION RATE 42.6 (>42); POTASSIUM SERUM 4.8 MEQ/L (3.5-5.1)
== END ==
LOC: M PLALAB 12:32
PROVIDERS: ATTEND Nurse Practitioner Family
DX: I25.5 Ischemic cardiomyopathy (principal)

== ENCOUNTER → 2023-01-15 | Outpatient (CLI) | payer MEDICARE, OTHER ==
[2023-01-15 10:44] LABS: CALCIUM LEVEL 8.7 MG/DL (8.3-10.6); CREATININE FOR GFR 2.27 MG/DL (0.70-1.30); GLOMERULAR FILTRATION RATE 30.2 (>42); POTASSIUM SERUM 4.3 MMOL/L (3.5-5.1)
== END ==
LOC: M PLALAB 08:33
PROVIDERS: ATTEND Nurse Practitioner Family
DX: I50.22 Chronic systolic (congestive) heart failure (principal)

== ENCOUNTER → 2023-09-06 | Outpatient (CLI) | payer MEDICARE, OTHER ==
[2023-09-06 11:57] LABS: HEMATOCRIT 41.4 % (42.0-52.0); MEAN CORPUSCULAR HEMOGLOBIN 32.9 pg (27.0-33.0); MEAN CORPUSCULAR HGB CONC 31.4 g/dl (32.0-36.5); MEAN CORPUSCULAR VOLUME 104.8 fl (80.0-96.0); PLATELET COUNT, AUTOMATED 141 10^3/uL (150-450); RED BLOOD COUNT 3.95 10^6/uL (4.30-6.10); WHITE BLOOD COUNT 8.6 10^3/uL (4.0-10.0)
[2023-09-06 12:02] LABS: ALBUMIN 3.3 G/DL (3.2-5.2); BILIRUBIN,TOTAL 0.5 MG/DL (0.3-1.2); CHOLESTEROL RISK RATIO 3.24 (<5); CREATININE FOR GFR 2.05 MG/DL (0.70-1.30); GLOMERULAR FILTRATION RATE 33.9 (>42); HDL CHOLESTEROL 39.1 MG/DL (>40); LDL CHOLESTEROL 61.7 MG/DL (<100); NON-HDL-C 87.9 MG/DL; POTASSIUM SERUM 4.5 MMOL/L (3.5-5.1); TOTAL PROTEIN 6.5 G/DL (5.7-8.2)
[2023-09-06 12:15] LABS: HEMOGLOBIN A1c 8.5 % (4.0-6.0)
== END ==
LOC: M PLALAB 07:54
PROVIDERS: ATTEND Registered Nurse
DX: E11.65 Type 2 diabetes mellitus with hyperglycemia (principal); E78.2 Mixed hyperlipidemia; N18.31 Chronic kidney disease, stage 3a

== ENCOUNTER → 2023-10-07 | Outpatient (CLI) | payer MEDICARE, OTHER ==
[2023-10-08 07:57] LABS: CREATININE FOR GFR 1.95 MG/DL (0.70-1.30); GLOMERULAR FILTRATION RATE 35.9 (>42)
== END ==
LOC: M PLALAB 08:47
PROVIDERS: ATTEND Physician Assistant
DX: I77.9 Disorder of arteries and arterioles, unspecified (principal)

== ENCOUNTER → 2024-07-17 | Outpatient (CLI) | payer MEDICARE, OTHER | LOC: M RAD 13:14 | PROVIDERS: ATTEND Internal Medicine Nephrology | DX: I82.4Z3 Acute embolism and thrombosis of unspecified deep veins of distal lower extremity, bilateral (principal) ==